=== PATIENT | male | born 1985 | race Caucasian/White ===

== ENCOUNTER 2023-04-18 18:03 | Emergency (ER) | payer OTHER ==
[~2023-04-18] VITALS: Ht 175.3 cm; Wt 79.0 kg
[2023-04-18 18:40] VITALS: BP 127/94; PULSE 74; RESP 18; TEMP 98.5; O2SAT 98
[2023-04-18] MEDS ORDERED: TETANUS, DIPHTHERIA, PERTUSSIS VAC/PF 0.5ML (>10YR OLD) IM ONE (22:15)
[2023-04-18] MEDS ORDERED: LIDOCAINE HCL/PF 1% 10 MG/ML 5ML VIAL INFIL ONE (22:15)
[2023-04-18] MEDS ORDERED: BACITRACIN ZINC OINT UDPKT TOP ONE (22:30)
[2023-04-18] MEDS ORDERED: CEPH500T MT (22:33)
== END 2023-04-18 23:31 | disposition home or self-care (01) ==
LOC: ER 18:03
DX: S61.411A Laceration without foreign body of right hand, initial encounter (principal); X58.XXXA Exposure to other specified factors, initial encounter; Y93.9 Activity, unspecified; Y92.89 Other specified places as the place of occurrence of the external cause; Y99.8 Other external cause status
CPT/HCPCS: 12002; 99283; J3490; Z7610